=== PATIENT | male | born 1990 | race American Indian/Alaskan Native ===

== ENCOUNTER 2017-01-12 04:26 | Emergency (ER) | payer SELFPAY ==
[2017-01-12 04:32] VITALS: BP 141/76; PULSE 96; RESP 17; TEMP 98.2; O2SAT 98
--- NOTE | 2017-01-12 04:50 | ED PDOC ---
HPI: Psych/Substance Abuse Time Seen by Provider: 01/12/17 04:29 Chief Complaint (Nursing): Medical Clearance Chief Complaint (Provider): clearance for incarceration History Per: Patient, Other (PD) Additional History Per: Patient, Law Enforcement Additional Complaint(s): 26 y/o male brought in by EMS in police custody for medical/psych clearance for incarceration. Patient denies acute medical/psychiatric complaints. Past Medical History Reviewed: Historical Data, Nursing Documentation, Vital Signs Vital Signs: Last Vital Signs Temp 98.2 F 01/12/17 04:27 Pulse 96 H 01/12/17 04:27 Resp 17 01/12/17 04:27 BP 141/76 01/12/17 04:27 Pulse Ox 98 01/12/17 04:27 - Medical History PMH: No Chronic Diseases - Surgical History Surgical History: No Surg Hx - Family History Family History: States: Unknown Family Hx - Home Medications Home Medications: Ambulatory Orders Medication Instructions Recorded Sulfamethoxazole/Trimethopri 1 tab PO BID #20 tab 09/19/14 [Bactrim Ds 800 mg-160 mg] - Allergies Allergies/Adverse Reactions: Allergies Allergy/AdvReac Type Severity Reaction Status Date / Time No Known Allergies Allergy Verified 09/19/14 17:17 Review of Systems ROS Statement: Except As Marked, All Systems Reviewed And Found Negative Physical Exam - Reviewed Nursing Documentation Reviewed: Yes Vital Signs Reviewed: Yes - Physical Exam Appears: Positive for: Well, Non-toxic, No Acute Distress Head Exam: Positive for: ATRAUMATIC, NORMAL INSPECTION, NORMOCEPHALIC Cardiovascular/Chest: Positive for: Regular Rate, Rhythm Respiratory: Positive for: Normal Breath Sounds Extremity: Positive for: Normal ROM Neurologic/Psych: Positive for: Alert, Oriented - ECG O2 Sat by Pulse Oximetry: 98 - Progress ED Course And Treament: Patient evaluated and cleared for discharge by warm in worker. Disposition - Clinical Impression Clinical Impression: Medical clearance for incarceration - Patient ED Disposition Is Patient to be Admitted: No Counseled Patient/Family Regarding: Diagnosis, Need For Followup - Disposition Disposition: Discharged/Transfer to Law Enforcement Disposition Time: 05:03 Condition: GOOD Additional Instructions: Patient medically and psychiatrically cleared for incarceration.
== END 2017-01-12 05:08 | disposition home or self-care (01) ==
LOC: H.ER 04:26
DX: Z02.89 Encounter for other administrative examinations (principal)

== ENCOUNTER 2017-11-17 12:50 | Emergency (ER) | payer MEDICAID, OTHER ==
[2017-11-17 12:56] VITALS: BP 131/82; PULSE 96; RESP 19; TEMP 98.5; O2SAT 98
--- NOTE | 2017-11-17 13:21 | ED PDOC ---
HPI: CCC, URI, Sore Throat Time Seen by Provider: 11/17/17 13:14 Chief Complaint (Nursing): ENT Problem Chief Complaint (Provider): Cough, congestion and sore throat History Per: Patient History/Exam Limitations: no limitations Onset/Duration Of Symptoms: Days (x3) Current Symptoms Are (Timing): Still Present Location Of Pain: Throat Associated Symptoms: Sore Throat, Nasal Congestion, Other (blurry vision to left eye). denies: Fever, Chills Ear Symptoms: Bilateral: None Additional Complaint(s): Juice Asif is a 27 year old male, with no significant past medical history, who presents to the emergency department complaining of cough, congestion and sore throat onset for x3 days. He also reports blurry vision to the left eye that happens occasionally every year. Patient denies any fever, chills or shortness of breath. No further medical complaints. PMD: None provided. Past Medical History Reviewed: Historical Data, Nursing Documentation, Vital Signs Vital Signs: Last Vital Signs Temp 98.5 F 11/17/17 12:52 Pulse 96 H 11/17/17 12:52 Resp 19 11/17/17 12:52 BP 131/82 11/17/17 12:52 Pulse Ox 98 11/17/17 13:41 - Medical History PMH: No Chronic Diseases Denies: Diabetes, Hepatitis, HIV, HTN, Seizures, Sexually Transmitted Disease - Surgical History Surgical History: No Surg Hx - Family History Family History: States: Unknown Family Hx - Home Medications Home Medications: Ambulatory Orders Medication Instructions Recorded Sulfamethoxazole/Trimethopri 1 tab PO BID #20 tab 09/19/14 [Bactrim Ds 800 mg-160 mg] Phenylephrine HCl [Murali-Synephrine] 1 spray NS TID #5 ml 11/17/17 - Allergies Allergies/Adverse Reactions: Allergies Allergy/AdvReac Type Severity Reaction Status Date / Time No Known Allergies Allergy Verified 11/17/17 12:56 Review of Systems ROS Statement: Except As Marked, All Systems Reviewed And Found Negative Constitutional: Negative for: Fever, Chills ENT: Positive for: Nose Congestion, Throat Pain Respiratory: Negative for: Shortness of Breath Physical Exam - Reviewed Nursing Documentation Reviewed: Yes Vital Signs Reviewed: Yes - Physical Exam Appears: Positive for: Well, Non-toxic, No Acute Distress Head Exam: Positive for: ATRAUMATIC, NORMOCEPHALIC Skin: Positive for: Normal Color, Warm, Dry Eye Exam: Positive for: Normal appearance, EOMI, PERRL. Negative for: Other ( no visual disturbances) ENT: Positive for: Pharyngeal Erythema (bilateral), Other (Uvula midline, slightly edemic.). Negative for: Tonsillar Exudate, Tonsillar Swelling (not enlarged ) Neck: Positive for: Painless ROM, Supple Respiratory: Positive for: Normal Breath Sounds (CTA). Negative for: Wheezing, Respiratory Distress Lymphatic: Positive for: Other (Cervical nodes normal ) Neurologic/Psych: Positive for: Alert, Oriented - ECG O2 Sat by Pulse Oximetry: 98 (RA) Pulse Ox Interpretation: Normal Medical Decision Making Medical Decision Making: Initial Impression: URI Initial Plan: ~ Scribe Attestation: Documented by Leodan Beyer, acting as a scribe for Manny Funk PA-C. Provider Scribe Attestation: All medical record entries made by the Scribe were at my direction and personally dictated by me. I have reviewed the chart and agree that the record accurately reflects my personal performance of the history, physical exam, medical decision making, and the department course for this patient. I have also personally directed, reviewed, and agree with the discharge instructions and disposition. Disposition - Clinical Impression Clinical Impression: Sore throat, Acute pharyngitis - Disposition Disposition Time: 13:41 Condition: GOOD Prescriptions: Phenylephrine HCl [Murali-Synephrine] 1 spray NS TID #5 ml Instructions: Viral Pharyngitis, Viral Pharyngitis (DC) Forms: [employer] (Surinamese)
== END 2017-11-17 13:37 | disposition home or self-care (01) ==
LOC: H.ER 12:50
DX: J02.9 Acute pharyngitis, unspecified (principal); R05 Cough